=== PATIENT | male | born 1985 | race Two or more races ===

== ENCOUNTER 2019-05-05 17:51 | Emergency (ER) | payer SELFPAY ==
[~2019-05-05] VITALS: Ht 182.9 cm; Wt 80.0 kg
[~2019-05-05 17:51] MED LIST: NO HOME MEDS
[2019-05-05] MEDS ORDERED: SODIUM CHLORIDE 0.9% 1,000 ML IV ONE (20:37)
[2019-05-05 20:56] LABS: BASOPHILS % 0.4 % (0.0-2.0); EOSINOPHILS % 1.8 % (0.0-5.0); HEMOGLOBIN. 13.4 g/dL (14.0-18.0); LYMPHOCYTES % 20.8 % (20.0-50.0); MEAN CORPUSCULAR HEMOGLOBIN 29.1 pg (28.0-32.0); MEAN PLATELET VOLUME 7.5 fl (7.4-10.4); MONOCYTES % 6.2 % (2.0-8.0); NEUTROPHILS % 70.8 % (40.0-76.0); PLATELET 236 x1000/uL (130-400); RED BLOOD CELL COUNT 4.59 mill/uL (4.7-6.1); RED CELL DISTRIBUTION WIDTH 13.6 % (11.6-14.6)
[2019-05-05 21:01] LABS: CHLORIDE 103 mEq/L (98-107)
[2019-05-05 22:52] VITALS: BP 130/65
== END 2019-05-05 23:35 | disposition home or self-care (01) ==
LOC: ER 17:51
DX: K59.00 Constipation, unspecified (principal); E86.0 Dehydration; F17.210 Nicotine dependence, cigarettes, uncomplicated
CPT/HCPCS: 36415; 74018; 80053; 83690; 85025; 96360; 99284; J7030; Z7610

== ENCOUNTER 2021-07-19 00:17 | Emergency (ER) | payer SELFPAY ==
[~2021-07-19] VITALS: Ht 182.9 cm; Wt 81.0 kg
[2021-07-19 00:26] VITALS: BP 134/88
[2021-07-19 02:40] LABS: CHLORIDE 104 mEq/L (98-107)
[2021-07-19 02:56] LABS: HEPATITIS B SURFACE AB < 3.1 mIU/mL
[2021-07-19 03:07] LABS: HEPATITIS B SURFACE ANTIGEN NEGATIVE
[2021-07-19] MEDS ORDERED: EMTR200C3 PO (03:55)
[2021-07-19] MEDS ORDERED: RALT400T PO (03:55)
[2021-07-19] MEDS ORDERED: VIRE MT (03:55)
== END 2021-07-19 04:20 | disposition home or self-care (01) ==
LOC: ER 00:17
DX: Z20.6 Contact with and (suspected) exposure to human immunodeficiency virus [HIV] (principal); E11.9 Type 2 diabetes mellitus without complications; Z79.899 Other long term (current) drug therapy; Z87.19 Personal history of other diseases of the digestive system
CPT/HCPCS: 36415; 80053; 86592; 86593; 86703; 86705; 86706; 86780; 86803; 87340; 99283

== ENCOUNTER 2022-10-02 11:32 | Emergency (ER) | payer MEDICAID ==
[~2022-10-02] VITALS: Ht 182.9 cm; Wt 78.0 kg
[~2022-10-02 11:32] MED LIST changes: +EMTR200C3 PO; +RALT400T PO; +VIRE MT
[2022-10-02] MEDS ORDERED: ACETAMINOPHEN 325MG TABLET PO STA (14:16)
[2022-10-02] MEDS ORDERED: KETOROLAC 60MG/2ML VIAL IM ONE (14:30)
[2022-10-02] MEDS ORDERED: SODIUM CHLORIDE 0.9% 1,000 ML IV ONE (14:45)
[2022-10-02 15:11] VITALS: BP 90/51
[2022-10-02 15:20] LABS: BASOPHILS % 0.5 % (0.0-2.0); EOSINOPHILS % 1.4 % (0.0-5.0); HEMATOCRIT. 44.6 % (42.0-52.0); HEMOGLOBIN. 15.2 g/dL (14.0-18.0); LYMPHOCYTES % 23.2 % (20.0-50.0); MEAN CORPUSCULAR HEMOGLOBIN 29.4 pg (28.0-32.0); MEAN CORPUSCULAR VOLUME 86.3 fL (80.0-94.0); MEAN PLATELET VOLUME 8.3 fl (7.4-10.4); MONOCYTES % 7.8 % (2.0-8.0); NEUTROPHILS % 67.1 % (40.0-76.0); PLATELET 321 x1000/uL (130-400); RED BLOOD CELL COUNT 5.17 mill/uL (4.7-6.1); RED CELL DISTRIBUTION WIDTH 13.2 % (11.6-14.6)
[2022-10-02 15:28] LABS: CHLORIDE 95 mEq/L (98-107)
[2022-10-02 15:32] LABS: INR 0.9; PROTHROMBIN TIME 9.8 sec (9.6-11.0)
[2022-10-02] MEDS ORDERED: CEPH500T MT (16:27)
[2022-10-02] MEDS ORDERED: CEFTRIAXONE SODIUM 1 G/VIAL IM ONE (16:30)
[2022-10-02 17:18] LABS: CLARITY URINE CLOUDY (CLEAR); COLOR URINE YELLOW (YELLOW); KETONES URINE NEGATIVE (NEGATIVE); LEUKOCYTE ESTERASE URINE 2+ (NEGATIVE); NITRITE URINE POSITIVE (NEGATIVE); OCCULT BLOOD URINE 3+ (NEGATIVE); PROTEIN URINE 1+ (NEGATIVE); SPECIFIC GRAVITY URINE 1.044 (1.005-1.030); UROBILINOGEN URINE 0.2 E.U./dL (0.2-1.0)
== END 2022-10-02 16:54 | disposition home or self-care (01) ==
LOC: ER 11:32
DX: N12 Tubulo-interstitial nephritis, not specified as acute or chronic (principal); E11.9 Type 2 diabetes mellitus without complications; Z87.19 Personal history of other diseases of the digestive system
CPT/HCPCS: 36415; 74176; 80053; 81003; 83690; 85025; 85610; 87040; 87077; 87086; 87186; 96372; 99284; J0696; J1885; J7030